=== PATIENT | female | born 1995 | race Caucasian/White ===

== ENCOUNTER 2021-01-23 18:52 | Emergency (ER) | payer OTHER ==
[~2021-01-23] VITALS: Ht 157.5 cm; Wt 60.8 kg
[2021-01-23 18:52] VITALS: BP 115/77
--- NOTE | 2021-01-23 18:52 | NUR ---
PT BIBA AND PLACED IN BED 3.
--- NOTE | 2021-01-23 19:07 | NUR ---
Dr. Silva examining patient.
[2021-01-23] MEDS ORDERED: IBUPROFEN 400 MG TAB PO ONE (19:15)
--- NOTE | 2021-01-23 19:25 | NUR ---
AMBULATED TO BR FOR UA
--- NOTE | 2021-01-23 19:30 | NUR ---
RECEIVED IN BED 3 WITH C/O NECK PAIN. STATES I CAME HERE "BECAUSE I DONT FEEL WELL AND I CAN'T BREATH" IS CRYING AND ROLLING AROUND ON GURNEY, ANXIOUS. O2 SAT = 100 %. SPEAKS IN FULL CLEAR SENTENCES. REASSURANCE GIVEN. PMH :NONE NKDA
--- NOTE | 2021-01-23 19:48 | NUR ---
X-Ray at bedside.
[2021-01-23] MEDS ORDERED: NAPR-1704 PO (20:10)
--- NOTE | 2021-01-23 20:10 | NUR ---
COVID SWAB OBTAINED AND SENT TO LAB
[2021-01-23 21:25] VITALS: BP 115/77
== END 2021-01-23 21:25 | disposition home or self-care (01) ==
LOC: MED 18:52
DX: B34.9 Viral infection, unspecified (principal); Z20.822 Contact with and (suspected) exposure to COVID-19; M54.2 Cervicalgia; F17.210 Nicotine dependence, cigarettes, uncomplicated; Z79.899 Other long term (current) drug therapy; Z71.6 Tobacco abuse counseling
CPT/HCPCS: 71045; 81002; 81025; 99284; U0003